=== PATIENT | female | born 1960 | race Caucasian/White ===

== ENCOUNTER 2017-12-25 19:28 | Emergency (ER) | payer OTHER ==
[2017-12-25] MEDS: HYDROCODONE/APAP (5/325) TAB PO (21:17)
== END 2017-12-25 22:59 | disposition home or self-care (01) ==
LOC: FTE 19:28
DX: S40.011A Contusion of right shoulder, initial encounter (principal); S50.11XA Contusion of right forearm, initial encounter; S70.11XA Contusion of right thigh, initial encounter; S20.229A Contusion of unspecified back wall of thorax, initial encounter; R07.9 Chest pain, unspecified; W10.8XXA Fall (on) (from) other stairs and steps, initial encounter; Y92.9 Unspecified place or not applicable
CPT/HCPCS: 71046; 73030-RT; 73090-RT; 73550; 99284-25